=== PATIENT | male | born 1955 | race Caucasian/White ===

== ENCOUNTER 2023-07-31 20:05 | Emergency (ER) | payer OTHER ==
[2023-07-31 20:16] VITALS: RESP 20; BMI 27.3
[2023-07-31] MEDS ORDERED: ASPIRIN 325 MG TABLET ONE (21:28)
[2023-07-31] MEDS: ASPIRIN 325 MG TABLET PO ONE (22:25)
[2023-07-31 22:27] LABS: BASO % 0.5 % (0-2.0); EOS % 3.4 % (0-4.5); HEMATOCRIT 43.6 % (35.4-49); LYMPH % 31.8 % (8-40); MCH 31.1 pg (25.7-33.7); MCHC 34.4 g/dl (32.0-35.9); MEAN CELL VOLUME 90.4 fl (80-96); MEAN PLT VOLUME 8.3 fl (7.5-11.1); MONO % 8.9 % (3.8-10.2); NEUT % 55.4 % (42.8-82.8); PLATELET COUNT 250 10^3/uL (134-434); RBC 4.82 M/mm3 (4.00-5.60); RDW 14.5 % (11.9-15.9); WHITE BLOOD COUNT 7.2 K/mm3 (4.0-10.0)
[2023-07-31 22:40] LABS: INR 1.02 (0.83-1.09); PROTHROMBIN TIME (PATIENT) 11.7 SEC (9.7-13.0)
[2023-07-31 22:42] LABS: ACTIVATED PTT 27.4 SECONDS (25.2-36.5)
[2023-07-31] MEDS ORDERED: ASPIRIN 81 MG CHEWABLE TABLETS PO ONE (22:43)
[2023-07-31 23:05] LABS: POTASSIUM 3.6 mmol/L (3.5-5.1)
[2023-07-31 23:08] LABS: ALBUMIN 4.1 g/dl (3.4-5.0)
[2023-07-31 23:13] LABS: BILIRUBIN,TOTAL 0.6 mg/dL (0.2-1); TOT PROT 7.6 g/dl (6.4-8.2)
[2023-07-31 23:16] LABS: N-TERMINAL BNP 47.7 pg/ml (5-125)
[2023-07-31 23:25] VITALS: BP 155/83; PULSE 70; TEMP 98
== END 2023-08-01 00:39 | disposition home or self-care (01) ==
LOC: JER 20:05
DX: R07.9 Chest pain, unspecified (principal); M54.30 Sciatica, unspecified side; M79.604 Pain in right leg
CPT/HCPCS: 36415; 71046-TC-FY; 80053; 83880; 84484; 85025; 85610; 85730; 93005; 93010; 93971-TC; 99285-25